=== PATIENT | male | born 1945 | race Caucasian/White ===

== ENCOUNTER 2019-05-11 05:22 | Day surgery (SDC) | payer MEDICARE, BC ==
[~2019-05-11] VITALS: Ht 182.9 cm; Wt 108.9 kg
[~2019-05-11 05:22] MED LIST: CO Q-10100 MG PO; COZAAR25 MG PO; CRESTOR20 MG PO; FISH OIL 1,0001 CA1 PO
[2019-05-11 05:56] LABS: HEMATOCRIT 45.1 % (42.0-54.0); HEMOGLOBIN 15.3 g/dL (13.5-17.5); MCHC 33.9 g/dL (31.0-37.0); MCV 94.4 fL (80.0-100.0); MEAN PLATELET VOLUME 9.4 fL (7.4-10.4); RBC 4.78 10x6/uL (4.20-6.10); RDW 13.3 % (11.5-14.5); WBC 7.8 10x3/uL (4.8-10.8)
[2019-05-11 06:25] VITALS: BP 126/81; Ht 182.9 cm; Wt 108.9 kg
--- NOTE | 2019-05-11 09:39 | NUR ---
0900-REC'D FROM RR. AWAKE AND ALERT,VSS,DENIES PAIN. VSS. IV PATENT AT [facility] TO [facility]. CL IN EASY REACH. FAMILY AT BEDSIDE.
--- NOTE | 2019-05-11 09:40 | NUR ---
0935-TOLERATED FULL LIQUID TRAY.VSS. DENIES PAIN.
--- NOTE | 2019-05-11 09:40 | NUR ---
0910-FULL LIQUID TRAY TO ROOM.
--- NOTE | 2019-05-11 10:01 | NUR ---
1000-DISCHARGE CRITERIA MET. REMOVED IV WITH CATH INTACT,DISPOSED INTO SHARPS,COVERED SITE WITH BANDAID. REVIEWED POST OPERATIVE INSTRUCTIONS WITH PT AND . VERBALIZED UNDERSTANDING WITHOUT FURTHER QUESTIONS OR CONCERNS. ESCORTED OUT VIA W/C WITH SPOUSE TO DRIVE HOME.
--- NOTE | 2019-05-22 14:25 | OP ---
PATIENT NAME: MASHA PINEDA MEDICAL RECORD: [id number] :47 LOCATION:D.OPS ADMISSION DATE: SURGEON: DILLON ORTEGA MD DATE OF OPERATION: 05/11/2019 PREOPERATIVE DIAGNOSIS: Lipoma of the left scalp. POSTOPERATIVE DIAGNOSIS: Lipoma of the left scalp. PROCEDURE: Excision of lipoma of the left scalp. SURGEON: Dillon Ortega MD [employer]: None. BLOOD LOSS: 50 cc. ANESTHESIA: General. COMPLICATIONS: None. The risks, possible complications and alternatives to the procedure were explained to the patient. He elects to proceed. OPERATIVE COURSE: The patient was conveyed to the operating room electively on 05/11/2019. General anesthesia was induced by anesthesia staff. The patient was positioned in the lateral decubitus position with the right side down. The left head was sterilely prepped and draped. Two curvilinear incisions were accomplished over the lipoma, which measured 4 cm in diameter. It was over the left mastoid. I dissected down until the lipomatous tissue was extirpated. Surrounding connective tissue was excised in a piecemeal fashion in order to prevent recurrence of the lipoma. Meticulous hemostasis was achieved with electrocautery. The skin was closed with metallic clips. Sterile dressing was applied. The patient was then extubated and conveyed to the post-anesthesia care unit where he was in stable condition. He will be dismissed home on [place] for pain. I will see him in the office in 2-3 weeks. TRANSINT:[id number] Voice Confirmation ID: [id number] DOCUMENT ID: [id number] DILLON ORTEGA MD at 1425 CC: ROCKY HANDLEY MD [id number] DICTATION DATE: 05/11/19 0852 PULL OUT OPERATOR: 05/11/19 0912 [facility] 05/11/19 [place] [id number]
== END 2019-05-11 10:00 | disposition home or self-care (01) ==
LOC: D.OPS 05:22 → D.PAN 08:00 → D.OPS 10:00
PROVIDERS: Anesthesiology; ATTEND Surgery
DX: D17.0 Benign lipomatous neoplasm of skin and subcutaneous tissue of head, face and neck (principal); F17.200 Nicotine dependence, unspecified, uncomplicated